=== PATIENT | female | born 1990 | race Caucasian/White ===

== ENCOUNTER 2019-05-16 13:33 | Emergency (ER) | payer OTHER ==
[~2019-05-16] VITALS: Ht 162.6 cm; Wt 108.9 kg
[2019-05-16 13:38] VITALS: BP 105/74
[2019-05-16] MEDS ORDERED: BUTALB-APAP-CA1 EACH PO (14:38)
== END 2019-05-16 14:44 | disposition home or self-care (01) ==
LOC: ER 13:33
DX: R51 Headache (principal)